=== PATIENT | male | born 1955 | race Caucasian/White ===

== ENCOUNTER 2018-05-21 19:22 | Observation (INO) ==
--- NOTE | 2018-05-21 20:37 | ED ---
HPI General Chief Complaint: Chest Pain Stated Complaint: prior cardiac issues/chest pain Time Seen by Provider: 05/21/18 20:22 Source: family Mode of arrival: ambulatory Limitations: language barrier History of Present Illness MD complaint: chest pain STEMI Alert: No Onset (ago): hour(s) (1430) Duration: now resolved Onset: other (while driving home from work) Pain location: substernal Severity: mild Quality: sharp Pain radiation: none Relieving factors: nitroglycerin Exacerbating factors: nothing Associated symptoms: other (tingling left fingers) Treatments prior to arrival chest pain: nitroglycerin Related Data Home Medications Medication Instructions Recorded Confirmed atorvastatin 20 mg PO DAILY 05/21/18 05/21/18 carvedilol 25 mg PO BID 05/21/18 05/21/18 enalapril maleate 2.5 mg PO DAILY 05/21/18 05/21/18 nitroglycerin 0.4 mg SUBLINGUAL Q5-15M PRN 05/21/18 05/21/18 Allergies Allergy/AdvReac Type Severity Reaction Status Date / Time No Known Allergies Allergy Unverified 05/21/18 20:08 Review of Systems ROS: all other systems reviewed are negative PMFSH History History Provided By: Family Member and Medical Record (from his prosthodontist/educator) Medical History Medical History Coronary artery disease (Acute) Hypertension (Acute) Palpitations (Acute) Stroke (Acute) Surgical History Surgical History History of cardiac cath (Acute) Social History Social History Substance History: No History of Abuse Second Hand Smoke Exposure: No Smoking Status: Never smoker How Often Do You Have a Drink Containing Alcohol: Never Recent Travel in [facility] within the Last 8 Weeks: No Recent Out of Country Travel within the Last 8 Weeks: No Exam Const General: cooperative, healthy appearing and comfortable Orientation: alert, awake and oriented x3 HENMT Head: normal to inspection, normocephalic and atraumatic Eyes General: appearance normal, both eyes and all related structures Conjunctivae: conjunctivae normal Sclera: sclerae normal EOM: EOM intact bilaterally Neck Neck: normal visual inspection and full ROM Chest Chest: normal inspection of the chest Resp Effort & Inspection: normal respiratory effort and able to speak in complete sentences Auscultation: clear to auscultation bilaterally Cardio Rate: regular rate Rhythm: regular rhythm Heart Sounds: S1 normal and S2 normal GI Inspection: normal to inspection Palpation: soft Back/Spine/Pelvis Cervical Spine: cervical ROM normal Thoracic/Lumbar Spine: thoraco-lumbar ROM normal Skin General: no rashes or lesions noted, turgor normal and dry skin Neuro General: alert, awake, oriented x3, moves all extremities and CN's II-XI intact bilaterally Extrem General: normal to inspection, full ROM and no pedal edema Psych Appearance: grossly normal Mental Status: mental status grossly normal Speech and Movement: speech and movement normal Mood: congruent mood Affect: normal affect Attitude: cooperative Thought Process: normal Thought Content: normal Judgment: judgment good Course Initial Documented Vital Signs Temperature 97.9 F 05/21/18 20:08 Pulse Rate 63 05/21/18 20:08 Respiratory Rate 16 05/21/18 20:08 Blood Pressure 145/70 H 05/21/18 20:08 Pulse Oximetry 98 05/21/18 20:08 Last Documented Vital Signs Temperature 97.9 F 05/21/18 20:08 Pulse Rate 63 05/21/18 20:08 Respiratory Rate 16 05/21/18 20:08 Blood Pressure 145/70 H 05/21/18 20:08 Pulse Oximetry 95 05/21/18 21:26 Medical Decision Making MDM Narrative Medical decision making narrative: This is a 62-year-old man who comes in with chest pain which started about 2:30 PM. He used a sublingual nitroglycerin with complete relief of his chest pain. He then went to see his primary care provider who did an EKG and instructed him to come to the hospital for further evaluation. He has been pain-free since the nitroglycerin. He has had an aspirin at home. Chest pain evaluation has been ordered. I anticipate admission to the chest pain center for further evaluation. Following radiographic, EKG and laboratory evaluation, this patient is stable for admission to the chest pain center for further evaluation of his episode of chest pain. Medical Screen Exam Complete: Yes Emergency Medical Condition: Yes Differential Diagnosis Differential Diagnosis: Differential diagnosis of chest pain includes but is not limited to musculoskeletal pain, pulmonary embolism, acute coronary syndrome , pneumonia, pleurisy Medical Records Medical records reviewed: Yes I reviewed the patient's medical records. From his prosthodontist/educator. His most recent cardiac catheterization was done in 2016. He had an ejection fraction of 60% on that catheterization. He was found to have minimal disease at that time. He did have a Lexiscan stress test prior to that catheterization which did show wall motion abnormalities. Lab Data Lab results reviewed: Yes I reviewed the patient's lab results. Result diagrams: 05/21/18 20:38 05/21/18 20:38 Lab Results 05/21/18 05/21/18 Range/Units 20:38 20:38 WBC 4.1 (4.0-11.0) th/mm3 RBC 5.16 (4.50-5.90) mil/mm3 Hgb 15.5 (13.0-17.0) gm/dL Hct 46.7 (39.0-51.0) % MCV 90.4 (80.0-100.0) fL MCH 30.0 (27.0-34.0) pg MCHC 33.2 (32.0-36.0) % RDW 13.4 (11.6-17.2) % Plt Count 139 L (150-450) th/mm3 MPV 8.9 (7.0-11.0) fL Neut % (Auto) 53.0 (16.0-70.0) % Lymph % (Auto) 29.5 (9.0-44.0) % [place] % (Auto) 12.5 H (0.0-8.0) % Eos % (Auto) 4.2 H (0.0-4.0) % Baso % (Auto) 0.8 (0.0-2.0) % Neut # (Auto) 2.2 (1.8-7.7) th/mm3 Lymph # (Auto) 1.2 (1.0-4.8) th/mm3 [place] # (Auto) 0.5 (0.0-0.9) th/mm3 Eos # (Auto) 0.2 (0.0-0.4) th/mm3 Baso # (Auto) 0.0 (0.0-0.2) th/mm3 WBC Differential . Differential Comment Auto diff final Sodium 140 (136-145) meq/L Potassium 3.9 (3.5-5.1) meq/L Chloride 106 (98-107) meq/L Carbon Dioxide 27.5 (21.0-32.0) meq/L Anion Gap 7 (5-15) meq/L BUN 16 (7-18) mg/dL Creatinine 1.12 (0.60-1.30) mg/dL Estimated GFR 67 L (>89) mL/min Random Glucose 86 (74-106) mg/dL Calcium 8.7 (8.5-10.1) mg/dL Total Bilirubin 0.7 (0.2-1.0) mg/dL AST 24 (15-37) U/L ALT 21 (12-78) U/L Alkaline Phosphatase 80 (45-117) U/L Troponin I Less than 0.02 L (0.02-0.05) ng/mL Total Protein 7.4 (6.4-8.2) g/dL Albumin 3.9 (3.4-5.0) g/dL Imaging Data Attestation: I personally reviewed and interpreted this imaging study as follows : Radiologist's impression: Chest X-Ray 05/21/18 20:34 CONCLUSION: No acute findings. ECG Data EKG Prior to Arrival: Yes (EKG done at his doctor's office at 5 PM showed a normal sinus rhythm with no acute STT wave changes.) Attestation: I personally reviewed and interpreted this ECG as follows: (Normal sinus rhythm with a rate of 64 and no STT wave changes.) Discharge Plan Discharge Disposition Patient Disposition: 30 Still Patient Discharge Details Diagnosis: Chest pain Physicians Team ED Provider: Billie Kaur Primary Care Provider: NON STAFF,PROVIDER Rxs /Orders / Referrals /Forms Prescriptions: No Action carvedilol 25 mg Tablet 25 mg PO BID RF: 0 atorvastatin 20 mg Tablet 20 mg PO DAILY RF: 0 enalapril maleate 2.5 mg Tablet 2.5 mg PO DAILY RF: 0 nitroglycerin 0.4 mg Tablet, Sublingual 0.4 mg SUBLINGUAL Q5-15M PRN (Reason: Chest Pain) RF: 0 Discharge Instructions Patient Printed Instructions: Chest Pain (ED) Status ED Status: With Doctor
--- NOTE | 2018-05-21 20:58 | XR ---
EXAM DATE: 05/21/2018 8:55 PM EDT AGE/SEX: 62 years / Male INDICATIONS: Chest pain. CLINICAL DATA: This is the patient's initial encounter. Patient reports that signs and symptoms have been present for 1 day and indicates a pain score of 6/10. MEDICAL/SURGICAL HISTORY: None. None. COMPARISON: No prior exams available for comparison. FINDINGS: A single AP view of the chest demonstrates the lungs to be symmetrically aerated without evidence of mass, infiltrate or effusion. The cardiomediastinal contours are unremarkable. Osseous structures a re intact. CONCLUSION: No acute findings. Electronically signed by: Jj Palencia MD 05/21/2018 8:57 PM EDT
[2018-05-21 21:02] LABS: Baso % (Auto) 0.8 % (0.0-2.0); Eos # (Auto) 0.2 th/mm3 (0.0-0.4); Eos % (Auto) 4.2 % (0.0-4.0); Hematocrit 46.7 % (39.0-51.0); Hemoglobin 15.5 gm/dL (13.0-17.0); Lymph # (Auto) 1.2 th/mm3 (1.0-4.8); Lymph % (Auto) 29.5 % (9.0-44.0); Mean Corpuscular HGB Conc 33.2 % (32.0-36.0); Mean Corpuscular Volume 90.4 fL (80.0-100.0); Mean Platelet Volume 8.9 fL (7.0-11.0); Mono # (Auto) 0.5 th/mm3 (0.0-0.9); Mono % (Auto) 12.5 % (0.0-8.0); Neut # (Auto) 2.2 th/mm3 (1.8-7.7); Platelet Count 139 th/mm3 (150-450); Red Blood Count 5.16 mil/mm3 (4.50-5.90); Red Cell Distribution Width 13.4 % (11.6-17.2); White Blood Count 4.1 th/mm3 (4.0-11.0)
[2018-05-21 21:26] LABS: Albumin 3.9 g/dL (3.4-5.0); Anion Gap 7 meq/L (5-15); Aspartate Aminotransferase 24 U/L (15-37); Blood Urea Nitrogen 16 mg/dL (7-18); Calcium 8.7 mg/dL (8.5-10.1); Carbon Dioxide 27.5 meq/L (21.0-32.0); Chloride 106 meq/L (98-107); Glomerular Filtration Rate 67 mL/min (>89); Glucose,Random 86 mg/dL (74-106); Potassium 3.9 meq/L (3.5-5.1); Sodium 140 meq/L (136-145)
[2018-05-21 21:27] LABS: Alanine Aminotransferase 21 U/L (12-78)
[2018-05-21 21:31] LABS: Alkaline Phosphatase 80 U/L (45-117); Total Protein 7.4 g/dL (6.4-8.2)
[2018-05-22 03:43] LABS: Creatine Kinase 161 U/L (39-308)
[2018-05-22 04:14] VITALS: RESP 16
--- NOTE | 2018-05-22 07:51 | P.HPCA ---
History of Present Illness Primary Care Physician: Dr. Carson Sparrow Chief Complaint: Chest pain History of Present Illness: 62 year old Nigerian speaking male presents to ER as directed by his PCP to evaluated chest pain. Onset yesterday 2:30pm whiling driving. Location left anterior chest. No radiation. Moderate in severity. No associated symptoms of nausea, vomiting, dyspnea, or diaphoresis. Duration 5 minutes. No precipitating factors. Relieving factors nitro sublingual. Endorses similar pain in the past. Follows with fruit press operator, Dr. Gallardo in [place], [place]. Endorses recent cardiac testing last week, including echocardiogram, nuclear stress test, and EKG. Reported all testing to be normal. Yesterday after returning home from his first job, patient notified his of chest pain while driving. He works 2 jobs and continued to his second job. was concerned, calling boss, notifying boss of husbands earlier chest pain episode. Once patient arrived to work, boss instructed him to go ER for further evaluation. Once home called PCP and PCP instructed him to go to ER. No further chest discomfort. at bedside with multiple medical records from fruit press operator and PCP including cardiac cath report from 2016 and recent stress testing. Records reveal mild coronary artery disease and stent to right femoral artery. states patient followed by a fruit press operator for PVCs. Past cardiac testing October 2015 cardiac catheterization-mild coronary artery disease. Lexiscan 05/12/18 unremarkable Social history No known diabetes or heart failure. Known hypertension and hyperlipidemia. Non-smoker. Denies any alcohol or recreational drug use. Endorses an active lifestyle. . Works 2 jobs. - Diagnosis (1) Chest pain of uncertain etiology (2) History of hypertension (3) History of hyperlipidemia Review of Systems All other systems reviewed negative except as stated in HPI PMFSH - History History Provided By: Family Member, Medical Record - Medical History Medical History: Medical History (Last Updated 05/22/18 @ 09:20 by GRACIELA Mejia) Coronary artery disease Femoral artery stenosis, right Hyperlipidemia Hypertension Palpitations Stroke - Surgical History Surgical History: Surgical History (Last Updated 05/21/18 @ 20:11 by Patience Severino) History of cardiac cath - Social History I have reviewed the patient's Social History: Yes - Tobacco History Second Hand Smoke Exposure: No Tobacco Use In Past 30 Days: No Smoking Status: Never smoker - Alcohol History How Often Do You Have a Drink Containing Alcohol: Never - Substance Use History Substance History: Past History - Substance Use Type Crack/Cocaine Status: Sustained Remission Route Used: Inhalation Reason for Use: Feels Good, Get High - Travel History Recent Travel in the [place] Within the Last 8 Weeks: No Recent Travel Out of the Country Within the Last 8 Weeks: No - Immunization History Tetanus Immunization: >5 Years Hx Influenza Vaccine This Season: No Medications and Allergies Active Medications: Active Medications Sodium Chloride (Ns Flush) 2 ml IV.FLUSH UNSCH PRN PRN Reason: FLUSH AFTER USING IV ACCESS Sodium Chloride (Ns Flush) 2 ml IV.FLUSH BID FELIX Sodium Chloride (Ns Flush) 2 ml IV.FLUSH PRN PRN PRN Reason: FLUSH AFTER USING IV ACCESS Allergies Allergy/AdvReac Type Severity Reaction Status Date / Time No Known Allergies Allergy Unverified 05/21/18 20:08 Home Medications Medication Instructions Recorded Confirmed Type atorvastatin 20 mg PO DAILY 05/21/18 05/21/18 History carvedilol 25 mg PO BID 05/21/18 05/21/18 History enalapril maleate 2.5 mg PO DAILY 05/21/18 05/21/18 History nitroglycerin 0.4 mg SUBLINGUAL Q5-15M PRN 05/21/18 05/21/18 History Exam Vital signs: Vital Signs 05/21/18 20:08 05/21/18 21:26 05/21/18 22:00 Temperature 97.9 F Pulse Rate 63 56 L Respiratory Rate 16 15 Blood Pressure 145/70 H 110/54 L Pulse Oximetry 98 95 05/21/18 23:46 05/22/18 04:00 05/22/18 04:20 Temperature 98.6 F 97.9 F Pulse Rate 58 L 64 59 L Respiratory Rate 14 16 Blood Pressure 125/69 119/70 Pulse Oximetry 96 97 05/22/18 05:18 Temperature Pulse Rate 60 Respiratory Rate Blood Pressure Pulse Oximetry Intake & Output 05/21/18 05/22/18 05/22/18 18:59 06:59 18:59 Weight 56.699 kg Other: Date of Last Bowel Movement 05/21/18 Weight On Admission 56.699 kg Narrative: GENERAL: Alert WN, WD, NAD, pleasant, thin male Nigerian-speaking, easily awakens from sleep HEAD: NC, AT EYES: Sclera clear, conjunctiva without injection, pupils equal and round ENT: Mucous membranes pink and moist NECK: Supple, no masses, trachea midline CV: RRR, without murmur, rub, gallop, no JVD, S1-S2 RESP: Clear lungs throughout bilateral, no crackles, wheeze, rhonchi, symmetrical chest rise, nonlabored, able to speak in full sentences ABD: Soft, NT, ND, no masses, positive bowel tones EXT: Pulses +2x4, no dependent edema MS: Normal tone x4 extremities, nontender, no obvious deformities, full range of motion NEURO: CN II through CN XII grossly intact, motor strength 5/5, gait WNL PSYCH: A+O x3, pleasant affect, appropriate speech, mood, insight and judgment SKIN: Normal turgor, normal texture, no lesions, no rashes Results 05/21/18 20:38 05/21/18 20:38 Cardiac Enzymes 05/21/18 05/21/18 05/22/18 Range/Units 20:38 23:48 03:05 AST 24 (15-37) U/L Troponin I Less than 0.02 L Less than 0.02 L Less than 0.02 L (0.02-0.05) ng/mL CBC 05/21/18 Range/Units 20:38 WBC 4.1 (4.0-11.0) th/mm3 RBC 5.16 (4.50-5.90) mil/mm3 Hgb 15.5 (13.0-17.0) gm/dL Hct 46.7 (39.0-51.0) % Plt Count 139 L (150-450) th/mm3 Neut # (Auto) 2.2 (1.8-7.7) th/mm3 Lymph # (Auto) 1.2 (1.0-4.8) th/mm3 [place] # (Auto) 0.5 (0.0-0.9) th/mm3 Eos # (Auto) 0.2 (0.0-0.4) th/mm3 Baso # (Auto) 0.0 (0.0-0.2) th/mm3 Comprehensive Metabolic Panel 05/21/18 Range/Units 20:38 Sodium 140 (136-145) meq/L Potassium 3.9 (3.5-5.1) meq/L Chloride 106 (98-107) meq/L Carbon Dioxide 27.5 (21.0-32.0) meq/L BUN 16 (7-18) mg/dL Creatinine 1.12 (0.60-1.30) mg/dL Calcium 8.7 (8.5-10.1) mg/dL AST 24 (15-37) U/L ALT 21 (12-78) U/L Alkaline Phosphatase 80 (45-117) U/L Total Protein 7.4 (6.4-8.2) g/dL Albumin 3.9 (3.4-5.0) g/dL Intake and Output 05/21/18 05/22/18 05/22/18 22:59 06:59 14:59 Other: Date of Last Bowel Movement 05/21/18 Weight 56.699 kg 56.699 kg Weight On Admission 56.699 kg EKG interpretations - EKG EKG results cardiology: sinus rhythm, normal axis, normal QRS, normal ST/T Caprini VTE Risk Assessment Caprini VTE Risk Assessment: Moderate/High Risk (score >= 2) Caprini Risk Assessment Model: Point Value = 1 Point Value = 2 Point Value = 3 Point Value = 5 Age 41-60 Minor surgery BMI > 25 kg/m2 Swollen legs Varicose veins or History of unexplained or recurrent spontaneous Oral contraceptives or hormone replacement Sepsis (< 1 month) Serious lung disease, including pneumonia (< 1 month) Abnormal pulmonary function Acute myocardial infarction Congestive heart failure (< 1 month) History of inflammatory bowel disease Medical patient at bed rest Age 61-74 Arthroscopic surgery Major open surgery (> 45 min) Laparoscopic surgery (> 45 min) Malignancy Confined to bed (> 72 hours) Immobilizing plaster cast Central venous access Age >= 75 History of VTE Family history of VTE Factor V Leiden Prothrombin 30411L Lupus anticoagulant Anticardiolipin antibodies Elevated serum homocysteine Heparin-induced thrombocytopenia Other congenital or acquired thrombophilia Stroke (< 1 month) Elective arthroplasty Hip, pelvis, or leg fracture Acute spinal cord injury (< 1 month) Prophylaxis Regimen: Total Risk Factor Score Risk Level Prophylaxis Regimen 0-1 Low Early ambulation 2 Moderate Order ONE of the following: *Sequential Compression Device (SCD) *Heparin 5000 units SQ BID 3-4 Higher Order ONE of the following medications: *Heparin 5000 units SQ TID *Enoxaparin/Lovenox 40 mg SQ daily (WT < 150 kg, CrCl > 30 mL/min) *Enoxaparin/Lovenox 30 mg SQ daily (WT < 150 kg, CrCl > 10-29 mL/min) *Enoxaparin/Lovenox 30 mg SQ BID (WT < 150 kg, CrCl > 30 mL/min) AND/OR *Sequential Compression Device (SCD) 5 or more Highest Order ONE of the following medications: *Heparin 5000 units SQ TID (Preferred with Epidurals) *Enoxaparin/Lovenox 40 mg SQ daily (WT < 150 kg, CrCl > 30 mL/min) *Enoxaparin/Lovenox 30 mg SQ daily (WT < 150 kg, CrCl > 10-29 mL/min) *Enoxaparin/Lovenox 30 mg SQ BID (WT < 150 kg, CrCl > 30 mL/min) AND *Sequential Compression Device (SCD) Assessment and Plan - Assessment (1) Chest pain of uncertain etiology Code(s): R07.89 - Other chest pain Status: Resolved Plan: Admitted chest pain center. ACS ruled out 3 sets of EKGs and cardiac enzymes. Monitor on telemetry overnight. Seen and evaluated by Dr. Dakota Haile. Cardiac cath report from October 2015 reviewed. LV function 60%. Recent cardiac nuclear testing included last week, records reviewed and are unremarkable. No further cardiac testing. Discharge home later this morning. Instructed to follow up with PCP and fruit press operator, keeping next weeks scheduled appointments. Patient and agreeable to plan of care and verbalized understanding. (2) History of hypertension Code(s): Z86.79 - Personal history of other diseases of the circulatory system Status: Chronic Plan: Continue carvedilol and enalapril. LV function reviewed on cardiac cath EF60%. carvedilol likely for blood pressure control. (3) History of hyperlipidemia Code(s): Z86.39 - Personal history of other endocrine, nutritional and metabolic disease Status: Chronic Plan: Continue atorvastatin. H&P: Quality - VTE Deep Vein Thrombosis/Pulmonary Embolism Present on Admission: No
[2018-05-22 08:10] VITALS: BP 123/69; PULSE 61; TEMP 98; O2SAT 95
--- NOTE | 2018-05-23 10:35 | ECG ---
Date Performed: 05/22/2018 Time Performed: 00:12:18 PTAGE: 62 years EKG: Sinus rhythm NORMAL ECG PREVIOUS TRACING : 05/21/2018 19.58 DOCTOR: Freeman Baird Interpretating Date/Time 05/23/2018 10:33:53
--- NOTE | 2018-05-23 10:35 | ECG ---
Date Performed: 05/21/2018 Time Performed: 19:58:13 PTAGE: 62 years EKG: Sinus rhythm NORMAL ECG NO PREVIOUS TRACING DOCTOR: Freeman Baird Interpretating Date/Time 05/23/2018 10:34:00
--- NOTE | 2018-05-23 10:35 | ECG ---
Date Performed: 05/22/2018 Time Performed: 02:56:06 PTAGE: 62 years EKG: SINUS BRADYCARDIA BORDERLINE ECG No significant change PREVIOUS TRACING : 05/22/2018 00.12 DOCTOR: Freeman Baird Interpretating Date/Time 05/23/2018 10:33:34
== END 2018-05-22 08:46 | disposition home or self-care (01) ==
LOC: NEDA 19:22 → NEPE 19:22 → NEPGCP 23:00
PROVIDERS: ADMIT Internal Medicine Cardiovascular Disease; ATTEND Internal Medicine Cardiovascular Disease